=== PATIENT | male | born 1960 | race Hispanic/Latino ===

== ENCOUNTER → 2023-07-06 13:36 | Outpatient (REF) | payer OTHER, SELFPAY | LOC: RAD 13:36 | PROVIDERS: ATTENDING PHYSICIAN Physician Assistant; FAMILY PHYSICIAN Family Medicine | DX: M19.90 Unspecified osteoarthritis, unspecified site (principal); M25.59 Pain in other specified joint; R76.11 Nonspecific reaction to tuberculin skin test without active tuberculosis; Z68.30 Body mass index [BMI] 30.0-30.9, adult; M25.69 Stiffness of other specified joint, not elsewhere classified | CPT/HCPCS: 71046; 72072; 72100; 72170; 72202 ==

== ENCOUNTER 2024-08-08 06:21 | Day surgery (SDC) | payer OTHER, SELFPAY ==
[2024-08-08 07:08] LABS: Glucose - Point of Care 94 mg/dl (70-99)
== END 2024-08-08 08:55 | disposition home or self-care (01) ==
LOC: GI 06:21
PROVIDERS: ATTENDING PHYSICIAN Internal Medicine Gastroenterology
DX: Z12.11 Encounter for screening for malignant neoplasm of colon (principal); K57.30 Diverticulosis of large intestine without perforation or abscess without bleeding; K64.8 Other hemorrhoids; D12.0 Benign neoplasm of cecum; D12.2 Benign neoplasm of ascending colon; Z86.0100 Personal history of colon polyps, unspecified
CPT/HCPCS: 45385; 88305; 82962

== ENCOUNTER → 2024-10-13 14:21 | Outpatient (REF) | payer OTHER, SELFPAY | LOC: RAD 14:21 | PROVIDERS: ATTENDING PHYSICIAN Physician Assistant Medical; FAMILY PHYSICIAN Family Medicine | DX: R05.1 Acute cough (principal); R68.89 Other general symptoms and signs | CPT/HCPCS: 71046 ==